=== PATIENT | female | born 1960 | race Caucasian/White ===

== ENCOUNTER 2021-08-29 06:52 | Day surgery (SDC) | payer OTHER ==
[~2021-08-29] VITALS: Ht 157.5 cm; Wt 63.0 kg
[2021-08-29] MEDS ORDERED: fentaNYL citrate 0.05 MG/ML VIAL ONE (09:38)
[2021-08-29] MEDS ORDERED: MIDAZOLAM 5 MG/5 ML VIAL ONE (09:38)
[2021-08-29] MEDS ORDERED: LIDOCAINE 2% 100 MG/5 ML UJET TP ONE (09:39)
== END 2021-08-29 11:40 | disposition home or self-care (01) ==
LOC: MMU 06:52 → MDS 06:52
PROVIDERS: ATTEND Internal Medicine Gastroenterology
DX: R14.0 Abdominal distension (gaseous) (principal); K57.30 Diverticulosis of large intestine without perforation or abscess without bleeding; K44.9 Diaphragmatic hernia without obstruction or gangrene; K21.00 Gastro-esophageal reflux disease with esophagitis, without bleeding; Z20.822 Contact with and (suspected) exposure to COVID-19; Z79.899 Other long term (current) drug therapy
CPT/HCPCS: 43235; 45378; 87426; J2250; J3010